=== PATIENT | male | born 1955 | race Caucasian/White ===

== ENCOUNTER → 2024-05-19 13:56 | Outpatient (REF) | payer OTHER, SELFPAY | LOC: HWRAD 13:56 | PROVIDERS: ATTENDING PHYSICIAN Student in an Organized Health Care Education/Training Program | DX: T67.01XA Heatstroke and sunstroke, initial encounter (principal); R41.3 Other amnesia | CPT/HCPCS: 70450 ==

== ENCOUNTER 2024-09-12 15:37 | Emergency (ER) | payer OTHER, SELFPAY ==
[2024-09-12 15:48] VITALS: BP 97/70; BMI 26.9
[2024-09-12 15:54] LABS: % Basophils 0.2 % (0-2); % Eosinophils 0.1 % (0-6); % Immature Granulocytes 0.5 % (0-0.5); % Lymphocytes 35.4 % (20.5-51.1); % Monocytes 7.9 % (1.7-9.3); % Neutrophils 55.9 % (42.2-75.2); Absolute Monocytes 0.7 10^3/uL (0.1-0.6); Absolute Neutrophils 4.7 10^3/uL (1.4-6.5); Hematocrit 42.7 % (39.0-52.0); Hemoglobin 15.5 g/dL (13.0-18.0); Mean Corp Hgb Conc. 36.3 g/dL (33.0-37.0); Mean Corpuscular Hgb 32.4 pg (27.0-31.0); Mean Corpuscular Volume 89.1 fL (80.0-94.0); Mean Platelet Volume 10.8 fL (7.4-10.4); Nucleated Red Blood Cells % 0 % (-); Platelet Count 158 10^3/uL (130-400); Red Blood Cell Count 4.79 10^6/uL (4.70-6.10); Red Cell Dist. Width 12.5 % (11.5-14.5); White Blood Cell Count 8.4 10^3/uL (4.8-10.8)
--- NOTE | 2024-09-12 16:00 | EDRN ---
this RN heard the pt screaming from the nurses station, the pt was screaming, 'I'm dying i'm dying!', this RN assured the pt that he is stable and that he is safe here at ED, provider notified
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
--- NOTE | 2024-09-12 16:06 | EDRN ---
this RN and Mechelle RN talked with the pt and was able to calm the pt down, the pt was provided with an ER lunch box and a move was put on for the pt
[2024-09-12 16:16] LABS: ALT (SGPT) 14 U/L (0-50); AST (SGOT) 23 U/L (17-59); Albumin 4.4 g/dl (3.5-5.0); Alcohol 248 mg/dl; Alkaline Phosphatase 50 U/L (38-126); Blood Urea Nitrogen 13 mg/dl (9-20); Carbon Dioxide 20 mmol/L (22-30); Chloride 104 mmol/L (98-107); Estimated Creatinine Clearance 84 ml/min; Glucose 113 mg/dl (70-99); Potassium 4.3 mmol/L (3.5-5.1); Sodium 139 mmol/L (135-145); Total Bilirubin 0.6 mg/dl (0.2-1.3); Total Protein 6.6 g/dl (6.3-8.2); eGFR > 60.00
[2024-09-12] MEDS: NICORETTE 2 MG PO (16:19)
--- NOTE | 2024-09-12 16:19 | EDRN ---
Patient given nicotine gum. Patient spit it out at staff.
--- NOTE | 2024-09-12 16:19 | EDRN ---
the pt started screaming and attempted to get out of the stretcher and started walking out of the room, the pt screamed at staff, and screamed 'I want a fucking cigarette i want to fucking leave let me get the fuck out of here and take this fucking
IV out', security was called, the pt agreed to lay back in the stretcher, the pts PIV was removed and pressure dressing was placed by this RN, Brooks SOLIS was notified, the pt is currently laying in stretcher, the pt was provided with
nicotene gum that he spit out at staff, provider notified, awaiting to take the pt to CT scan, the pt refuses to allow staff to place the pt back on the monitor, will continue to monitor the pt closely
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
[2024-09-12 16:56] VITALS: BP 111/64
--- NOTE | 2024-09-12 16:57 | EDRN ---
this RN entered the pts room to check on him and the pt started to curse at this RN and stated, 'What the fuck do you want you dumb bitch', this RN notified the pt that this RN just entered his room to check on him, the pt then stated, 'Fuck you,
you fat bitch', this RN place the pt back on the blood pressure cuff, and the Sp02 monitor, and radiologic technology program director, the pt attempted to spit on this RN and failed, VS WNL, no s/s of distress other than the pt being agitated and verbally abusive to
staff, will continue to monitor the pt closely
[2024-09-12 17:00] VITALS: BP 101/61
[2024-09-12 17:27] VITALS: BP 101/61
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
--- NOTE | 2024-09-12 18:03 | EDRN ---
the pt is sleeping in stretcher in the lowest position, side rails up x2, call avila within reach, HOB elevated, no s/s of distress, one to one observation maintained, security near by, restraints remain off
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
== END 2024-09-12 19:44 | disposition home or self-care (01) ==
LOC: EMR 15:37
PROVIDERS: EMERGENCY PHYSICIAN Emergency Medicine
DX: F10.129 Alcohol abuse with intoxication, unspecified (principal); S00.83XA Contusion of other part of head, initial encounter; X58.XXXA Exposure to other specified factors, initial encounter; J44.9 Chronic obstructive pulmonary disease, unspecified; I10 Essential (primary) hypertension; K21.9 Gastro-esophageal reflux disease without esophagitis; F41.9 Anxiety disorder, unspecified; F17.200 Nicotine dependence, unspecified, uncomplicated; Z82.49 Family history of ischemic heart disease and other diseases of the circulatory system
CPT/HCPCS: 99284; 70450; 70486; 72125; 80053; 82077; 85025